=== PATIENT | female | born 1955 | race Caucasian/White ===

== ENCOUNTER 2019-02-02 07:16 | Day surgery (SDC) | payer MEDICARE, BC ==
[~2019-02-02] VITALS: Ht 160 cm; Wt 81.6 kg
[2019-02-02] VITALS (10 sets, daily range): BP systolic 105–132; BP diastolic 64–77
--- NOTE | 2019-02-02 07:00 | Pre-Procedure Note/Attestation ---
Pre-Procedure Note/Attestation Complete Prior to Procedure Planned Procedure: right Procedure Narrative: rt shoulder scope, sad, mini chen rtc repair Indications for Procedure Pre-Operative Diagnosis: rt shoulder rtc tear Attestation I attest that I discussed the nature of the procedure; its benefits; risks and complications; and alternatives (and the risks and benefits of such alternatives ), prior to the procedure, with the patient (or the patient's legal outside industrial sales representative). I attest that, if there was a reasonable possibility of needing a blood transfusion, the patient (or the patient's legal outside industrial sales representative) was given the [facility] standardized written summary, pursuant to the Zeeshan [place] Blood Safety Act ([place] Health and Safety Code # 1645, as amended). I attest that I re-evaluated the patient just prior to the surgery and that there has been no change in the patient's H&P, except as documented below:none Maurisio Zhang MD Feb 02, 2019 07:00
[~2019-02-02 07:16] MED LIST: ceFAZolin 1gm IVPB IVPB ONE; celeBREX 200mg Cap **SURGERY PATIENTS ONLY ORAL ONE; oxyCONTIN 20mg tab ORAL ONE
[2019-02-02] MEDS ORDERED: LR 1000ml 1,000 ML IVLG SCH (07:47)
[2019-02-02] MEDS ORDERED: HYDROCHLOROTHIA25 MG ORAL (07:48)
[2019-02-02] MEDS ORDERED: LIPITOR10 MG ORAL (07:48)
[2019-02-02] MEDS ORDERED: toprol XL PO (07:48)
--- NOTE | 2019-02-02 07:54 | Anethesia Preoperative Eval ---
Anesthesia Pre-op PMH/ROS General Date of Evaluation: Feb 02, 2019 Time of Evaluation: 08:11 Anesthesiologist: Crow ASA Score: ASA 2 Mallampati Score Class I : Soft palate, uvula, fauces, pillars visible Class II: Soft palate, uvula, fauces visible Class III: Soft palate, base of uvula visible Class IV: Only hard plate visible Mallampati Classification: Class II Surgeon: Leatha Diagnosis: R Shoulder Pain Surgical Procedure: R Shoulder Arthroscopy Anesthesia History: none Family History: no anesthesia problems Allergies: Uncoded Allergies: CAT GUT (Allergy, Severe, 02/02/19) ITCHING/SWELLINF Medications: see eMAR Patient NPO?: Yes Past Medical History Other: obesity - BMI 33 Anesthesia Pre-op Phys. Exam Physician Exam Vital Signs Date Time Temp Pulse Resp B/P (MAP) Pulse Ox O2 Delivery O2 Flow Rate FiO2 02/02/19 07:53 Room Air 02/02/19 07:55 98.3 69 16 127/67 99 Constitutional: NAD Neurologic: CN 2-12 intact Cardiovascular: RRR Respiratory: CTA Gastrointestinal: S/NT/ND Airway Exam Mallampati Score: Class II MO: full ROM: full Teeth: intact Anesthesia Pre-op A/P Risk Assessment & Plan Assessment: ASA 2 Plan: GA, SED, Supraclavicular Block Status Change Before Surgery: No Pre-Antibiotics Dru Grams Ancef IV Given Within 1 Hr of Incision: Yes Time Given: 08:51 Shant Gao MD Feb 02, 2019 07:54
[2019-02-02] MEDS ORDERED: Dexamethasone 4mg/ml vial ONE (07:57)
[2019-02-02] MEDS ORDERED: Sodium Chloride 10ml vial INJ ONE (07:57)
[2019-02-02] MEDS ORDERED: Lidocaine 1% MPF 10mg/ml 5ml ONE (07:57)
[2019-02-02] MEDS ORDERED: Ketorolac 30mg Inj IV PRN ×2 (08:00)
[2019-02-02] MEDS ORDERED: LORazepam Inj 2mg/ml 1ml IV PRN (08:00)
[2019-02-02] MEDS ORDERED: DiphenhydrAMINE 50mg/ml Inj IVP PRN (08:00)
[2019-02-02] MEDS ORDERED: Midazolam 2mg/2ml Inj IVP PRN (08:00)
[2019-02-02] MEDS ORDERED: oxyCODONE HCL/Acetaminophen 5/325mg ORAL PRN (08:00)
[2019-02-02] MEDS ORDERED: HYDROcodone/Acetamin 7.5/325 tab ORAL PRN (08:00)
[2019-02-02] MEDS ORDERED: Labetalol 5mg/ml 20ml vial IV PRN (08:00)
[2019-02-02] MEDS ORDERED: Meperidine 50mg/ml Inj(FOR RIGORS ONLY) IVP PRN (08:00)
[2019-02-02] MEDS ORDERED: LR 1000ml ONE (08:00)
[2019-02-02] MEDS ORDERED: Metoclopramide 10mg/2ml Inj IVP PRN (08:00)
[2019-02-02] MEDS ORDERED: Hydromorphone 0.5mg/0.5ml inj IVP PRN (08:00)
[2019-02-02] MEDS ORDERED: Atropine Sulfate 0.4mg/ml inj IVP PRN (08:00)
[2019-02-02] MEDS ORDERED: NS Irrig 4000ml IRRIG ONE (08:00)
[2019-02-02] MEDS ORDERED: fentaNYL 100 mcg/2 mL IV PRN (08:00)
[2019-02-02] MEDS ORDERED: HYDROcodone/Acetamin 5/325 tab ORAL PRN ×2 (08:00→09:45)
[2019-02-02] MEDS ORDERED: Propofol 200mg/20ml IV ONE (08:00)
[2019-02-02] MEDS ORDERED: EPINEPHrine 1mg/1ml Amp ONE ×2 (08:04→10:18)
[2019-02-02] MEDS ORDERED: Ropivacaine 5mg/ml Vial 30ml INJ ONE (08:04)
[2019-02-02] MEDS ORDERED: celeBREX 200mg Cap **SURGERY PATIENTS ONLY ORAL ONE (08:06)
[2019-02-02] MEDS ORDERED: oxyCONTIN 20mg tab ORAL ONE (08:06)
--- NOTE | 2019-02-02 09:14 | Immediate Post-Op Evaluation ---
Immediate Post-Op Evalulation Immediate Post-Op Evalulation Procedure: R Shoulder Arthroscopy, Rotator Cuff Repair Date of Evaluation: Feb 02, 2019 Time of Evaluation: 12:02 IV Fluids: 800 LR Blood Products: 0 Estimated Blood Loss: 12 Urinary Output: 0 Blood Pressure Systolic: 131 Blood Pressure Diastolic: 73 Pulse Rate: 71 Respiratory Rate: 16 O2 Sat by Pulse Oximetry: 99 Temperature (Fahrenheit): 97 Pain Score (1-10): 1 Nausea: No Vomiting: No Complications 0 Patient Status: awake, reacts, patent, none Hydration Status: adequate Dru Grams Ancef IV Given Within 1 Hr of Incision: Yes Time Given: 08:51 Shant Gao MD Feb 02, 2019 09:14
--- NOTE | 2019-02-02 09:15 | 48 Hour Post Anesthesia Eval ---
Post Anesthesia Evaluation Procedure: R Shoulder Arthroscopy Date of Evaluation: Feb 02, 2019 Time of Evaluation: 14:21 Blood Pressure Systolic: 138 0: 74 Pulse Rate: 64 Respiratory Rate: 18 Temperature (Fahrenheit): 98.2 O2 Sat by Pulse Oximetry: 96 Airway: patent Nausea: No Vomiting: No Pain Intensity: 1 Hydration Status: adequate Cardiopulmonary Status: Stable Mental Status/LOC: patient returned to baseline Follow-up Care/Observations: 0 Post-Anesthesia Complications: 0 Follow-up care needed: ready to discharge Shant Gao MD Feb 02, 2019 09:15
[2019-02-02] MEDS ORDERED: HYDROmorphone 1mg/ml Carpuject SUBQ PRN (09:45)
[2019-02-02] MEDS ORDERED: Tylenol #3 tab (300mg/30mg) ORAL PRN (09:45)
[2019-02-02] MEDS ORDERED: D5 1/2NS 1,000 ML IV SCH (09:45)
--- NOTE | 2019-02-02 11:36 | Brief Operative Note ---
Immediate Post Operative Note Operative Note Chief Complaint: rt shoulder pain Pre-op Diagnosis: rt shoulder rtc tear Procedure: rt shoulder scope, sad mini chen, rtc repair biceps tenodesis Post-op Diagnosis: same as pre-op Findings: consistent w/pre-op dx studies Surgeon: md singh Assembly Machine Operator: dar florez Anesthesiologist: md cherelle Anesthesia: general Specimen: none Complications: none Condition: stable Fluids: ns Estimated Blood Loss: minimal Drains: none Implant(s) used?: Yes - biomet Liz Florez Feb 02, 2019 11:36
--- NOTE | 2019-02-02 20:45 | Operative Note - Dictated ---
DATE OF OPERATION: 02/02/2019 PREOPERATIVE DIAGNOSES: 1. Right shoulder rotator cuff tear. 2. Right shoulder impingement. POSTOPERATIVE DIAGNOSES: 1. Right shoulder full-thickness large 2 cm rotator cuff tear with some retraction. 2. Right shoulder severe degenerated biceps tendon. 3. Right shoulder subacromial impingement. 4. Right shoulder bone spur underneath the clavicle. PROCEDURE: 1. Right shoulder arthroscopy and extensive intraarticular shaving. 2. Right shoulder subacromial bursoscopy, bursectomy, and subacromial decompression. 3. Right shoulder arthroscopic biceps tenodesis through a 7 mm socket in the bicipital groove in the supra pectoral region with fixation with the Linvatec expandable screw. 4. Right shoulder mini Chen procedure (resection of inferior 30% descending into the clavicle). 5. Right shoulder arthroscopic rotator cuff repair using one 2.9 mm JuggerKnot anchor double loaded as well as a second 5.5 mm rescue PEEK screw and anchor due to the second JuggerKnot pulling out of the bone. SURGEON: Maurisio Zhang M.D. BOND WRITER: Liz Higuera PA-C. Pbx Inspector was present during the actual operative portion of the case and was important and essential part of the operation. During the operation, the food and beverage assistant held and operated the arthroscopic camera for visualization, assisted by manipulating the arm to help with visualization, and helped with essential parts of the repair process as necessary such as operating surgical instruments under surgeon supervision, suture management, and wound closures. ANESTHESIOLOGIST: Shant Gao M.D. ANESTHESIA: General LMA anesthesia, interscalene block. EBL: Minimal. COMPLICATIONS: None. SURGICAL INDICATION: The patient is a 63-year-old female who sustained the above injury to her shoulder. The patient was treated non-operative initially, but this did not alleviate the patients symptoms. Therefore, after discussing all non-surgical and surgical options, and discussing all foreseeable risk and benefits of surgery, the patient opted for surgical treatment as described above. PATIENT POSITIONING: Patient was brought to the operating room table and was placed on the operating room table. All pressure points were well padded. General anesthesia was induced and patient was then placed in the lateral decubitus position. All pressure points were well padded again and an axillary roll was placed. Patient shoulder was then prepped and draped in the usual sterile fashion. Time out was performed and the appropriate preoperative antibiotic was given by the anesthesiologist. EXAMINATION OF SHOULDER UNDER ANESTHESIA: The shoulder was examined under anesthesia with all muscles well relaxed. The shoulder was forward flexed, abducted and was placed through full range of external and internal rotation. The anterior, posterior, and inferior stability of the shoulder was checked. The exam revealed no evidence of adhesive capsulitis and no evidence of instability. PORTAL PLACEMENT: The posterior portal was established 2 cm inferior and 1 cm medial to the edge of the posterior acromion. 1 cm skin incision was made using an eleven blade and using the blunt obturator, the cannula was gently placed through the capsule. The midglenoid portal was established just lateral to the coracoid process under direct visualization. Direction of the cannula was first established using a spinal needle, and subsequently, the cannula was placed through the capsule with a blunt obturator. DIAGNOSTIC ARTHROSCOPY: The biceps tendon was probed and pulled through the joint for visualization. There was extensive biceps fraying and tearing in the bicipital groove and the biceps was pulled in. The biceps anchor was palpated with a probe and was visualized. It appeared well attached and there was no evidence of SLAP tear. The posterior labrum and axillary recess was visualized. This was normal and there was no evidence of loose cartilage or fragments in this area. The glenoid articular surface was visualized and it appeared normal. The articular surface of the rotator cuff was visualized and probed next. There was evidence of large rotator cuff tear with some retraction back to the mid acromial area. The Humeral head articular surface was then visualized. There was no evidence of articular cartilage damage. Next the anterior labrum, middle gleno-humeral ligament, subscapularis tendon, and the anterior inferior gleno-humeral ligament were evaluated. These structures were completely normal. At this point, the scope was moved to the midglenoid portal and the posterior structures including the posterior labrum, posterior capsule and posterior cuff were visualized. These structures were completely normal. The subscapularis recess was devoid of any loose bodies and the anterior capsule was well attached to the humeral neck. The middle and anterior inferior glenohumeral ligament was visualized. These structures were completely normal. OPERATIVE DEBRIDEMENTS AND REPAIR: Care was given to all partial thickness tears and frayed structures in the shoulder joint. The frayed rotator cuff and labrum was debrided using a shaver initially through the anterior portal and subsequently through the posterior portal to complete the debridement. This allowed for smooth debridement of all affected structures and all loose fragments were removed. At this point, care was given to the biceps tenotomy and tenodesis. A suture was placed in the biceps tendon approximately 1.5 cm above the insertion point of the glenoid. This was a traction suture. Subsequently, the biceps tenotomy was performed. Once the subacromial decompression was completed, the bicipital groove was identified and a 7 mm socket was drilled in in the bicipital groove in the supra pectoral region. At this point, the biceps tendon was then dunked into the 7 mm socket and was fixed using a 7 mm Linvatec expandable PEEK fixation device. This provided excellent stability of the biceps tendon. At this point, care was given for subacromial decompression. DIAGNOSTIC BURSASCOPY AND SUBACROMIAL DECOMPRESSION: The subacromion bursa was entered from the posterior portal. The anterior portal was established under the CA ligament using a switching stick. Subacromial arthroscopy was initiated. There was extensive bursitis and thickened and inflamed bursa tissue present. The CA ligament appeared to be scuffed and frayed. The shaver was placed through the anterior cannula and debridement of the hypertrophic bursa tissue was accomplished. Once visualization was adequate, a lateral portal was established using a blunt trochar in the mid portion of the acromion bone in the anterior-posterior direction and approximately 2 cm lateral to the lateral edge of the acromion. Using combination of shaver and electrocautery the CA ligament was released from the undersurface of the acromion and a complete bursectomy was accomplished. At this point, a subacromial decompression was performed using a aleshia initially taking off 5-8 mm of the anterolateral edge of the acromion from the lateral portal and viewing from the posterior portal. Then the lateral border of the undersurface of the acromion was decompressed to the same dept as the anterolateral edge. A posterior trough was then created in the acromion in line with the posterior edge of the clavicle. At this point, the scope was placed in the lateral portal and the subacromial decompression was performed from the posterior portal decompressing the undersurface of the acromion to dept of 5-8 mm. The decompression was performed anterior to the previously marked trough all the way medially to the level of the AC joint. At all times, care was given not to take off too much bone in order to avoid risk of fracture of the acromion. An excellent subacromial decompression was performed in this fashion. At this point, the bursal side of the rotator cuff was examined. All the bursa over the rotator cuff was removed and the rotator cuff was examined with a probe. The arm was placed into external rotation, neutral, and then internal rotation and there was evidence of a 2 cm partial retractor with a cuff tear. The scope was then placed in the posterior portal and the subacromial decompression was rechecked to assure there is no area of bone spur that would be still impinging onto the rotator cuff. EVALUATION OF DISTAL CLAVICLE AND DISTAL CLAVICLE RESECTION: Care was given to the distal end of the clavicle. Using electrocautery and andreia, the distal end of the bursa and soft tissue around the distal end of the clavicle was debrided and cleaned. Care was given not to inflict excessive trauma to the ligaments of the AC joint. The distal end of the clavicle appeared to have an inferior osteophyte extending down well bellow the level of the acromion at the level of the AC joint. This appeared to be impinging onto the supraspinatous muscle belly and the musculotendenous junction of the rotator cuff. A mini-chen procedure was performed by using a aleshia to resect the inferior 30% of the distal end of the clavicle. This decompression allowed space for the inferior structures to slide without impingment. This co-plained the inferior edge of the distal clavicle with the inferior edge of the acromion. The scope was placed in the lateral portal and the rotator cuff was visualized. The rotator cuff revealed a crescent shape pattern. The rotator cuff foot print adjacent to the articular cartilage of the humeral head was identified. This area was debrided initially using andreia and subsequently using aleshia to provide adequate bleeding bony surface to accept the rotator cuff tendon. Attention was given to repair the rotator cuff with as little tension as possible. At this point, an arthroscopic punch was used to create holes for suture anchor placement at the medial edge of the foot print through separate stab wound incisions and an arthroscopic tap was used to prepare the holes. One 2.9 mm JuggerKnot and one 5.5 mm rescue anchor double loaded with two #2 non-absorbable strong sutures were placed in previously prepared holes. It should be noted that the rescue anchor was used because the second JuggerKnot anchor was inserted and pulled out with gentle traction. The bone was very soft. Therefore, a 5.5 mm anchor was used. Using standard arthroscopic suture passing instruments, the sutures were passed through the edge of rotator cuff with minimal trauma to the cuff tissue. Care was given to obtain large enough bites of the rotator cuff for the sutures to hold well. Once the sutures were passed through the cuff, the repair was secured onto the rotator cuff foot print using SMC sliding knots followed by 3 alternating-post half hitches. This allowed tension free repair of the rotator cuff with excellent stability and water tight closure. The cuff repair security was assured by palpating the repair with a probe. CONDITION AT DISCHARGE FROM OPERATING ROOM: The skin was re-approximated and sterile dressing and sling were applied. All lap counts and instrument counts were correct. Patient tolerated the procedure well without complications and was taken to the recovery room in stable conditions. Maurisio Zhang M.D. DR: ARTIS JOB#: [id number] CC: [email or web address]
== END 2019-02-02 14:00 | disposition home or self-care (01) ==
LOC: SUR 07:16
DX: M75.121 Complete rotator cuff tear or rupture of right shoulder, not specified as traumatic (principal); M25.811 Other specified joint disorders, right shoulder; M77.9 Enthesopathy, unspecified
CPT/HCPCS: 29823; 29824; 29826; 29827; 29828; C1713; J0171; J0690; J1100; J2250; J2405; J2704; J2795; 94003; 94150

== ENCOUNTER 2020-10-03 05:07 | Inpatient (IN) | payer MEDICARE, BC ==
[2020-10-03] VITALS (15 sets, daily range): BP systolic 108–150; BP diastolic 63–91
[~2020-10-03] VITALS: Ht 160 cm; Wt 85.7 kg
[~2020-10-03 05:07] MED LIST changes: +ALLOPURINOL100 M1 ORAL; +ENBREL50 MG/1 M1 SUBQ; +FOLIC ACID1 MG ORAL; +HYDROCHLOROTHIA25 MG ORAL; +LIPITOR10 MG ORAL; +LISINOPRIL2.5 MG ORAL; +METHOTREXATE2.5 MG PO; +MOBIC7.5 MG ORAL; +PLAQUENIL PO; +PREDNISONE5 M4 PO; +SELENIUM200 MC2 PO; +SULFASALAZINE500 MG ORAL; +VITAMIN B125000 MCG PO; +VITAMIN D PO; -ceFAZolin 1gm IVPB IVPB ONE; -celeBREX 200mg Cap **SURGERY PATIENTS ONLY ORAL ONE; -oxyCONTIN 20mg tab ORAL ONE; +toprol XL PO
[2020-10-03] MEDS ORDERED: ceFAZolin 1gm IVPB IVPB ONE ×2 (06:00)
[2020-10-03] MEDS ORDERED: celeBREX 200mg Cap **SURGERY PATIENTS ONLY ORAL ONE (06:00)
[2020-10-03] MEDS ORDERED: oxyCONTIN 10mg tab ORAL ONE (06:00)
[2020-10-03] MEDS ORDERED: oxyCONTIN 20mg tab ORAL ONE (06:00)
[2020-10-03] MEDS ORDERED: LR 1000ml 1,000 ML IVLG SCH (06:45)
[2020-10-03] MEDS ORDERED: Meperidine 25mg/1ml Inj (FOR RIGORS ONLY) IV PRN (06:45)
[2020-10-03] MEDS ORDERED: LORazepam Inj 2mg/ml 1ml IV PRN (06:45)
[2020-10-03] MEDS ORDERED: Ketorolac 30mg Inj IV PRN ×2 (06:45)
[2020-10-03] MEDS ORDERED: fentaNYL 100 mcg/2 mL IV PRN (06:45)
[2020-10-03] MEDS ORDERED: Hydromorphone 0.5mg/0.5ml inj IVP PRN (06:45)
[2020-10-03] MEDS ORDERED: HYDROcodone/Acetamin 7.5/325 tab ORAL PRN (06:45)
[2020-10-03] MEDS ORDERED: oxyCODONE HCL/Acetaminophen 5/325mg ORAL PRN (06:45)
[2020-10-03] MEDS ORDERED: Midazolam 2mg/2ml Inj IVP PRN (06:45)
[2020-10-03] MEDS ORDERED: Tranexamic Acid 1,000 MG in NS 110 ML IVPB ONE (06:45)
[2020-10-03] MEDS ORDERED: Atropine Sulfate 0.4mg/ml inj IVP PRN (06:45)
[2020-10-03] MEDS ORDERED: Metoclopramide 10mg/2ml Inj IVP PRN (06:45)
[2020-10-03] MEDS ORDERED: Labetalol 5mg/ml 20ml vial IV PRN (06:45)
[2020-10-03] MEDS ORDERED: DiphenhydrAMINE 50mg/ml Inj IVP PRN (06:45)
[2020-10-03] MEDS ORDERED: HYDROcodone/Acetamin 5/325 tab ORAL PRN ×2 (06:45→07:15)
--- NOTE | 2020-10-03 06:52 | Anethesia Preoperative Eval ---
Anesthesia Pre-op PMH/ROS General Date of Evaluation: Oct 03, 2020 Time of Evaluation: 06:49 Anesthesiologist: Sima ASA Score: ASA 3 Mallampati Score Class I : Soft palate, uvula, fauces, pillars visible Class II: Soft palate, uvula, fauces visible Class III: Soft palate, base of uvula visible Class IV: Only hard plate visible Mallampati Classification: Class II Surgeon: Leatha Diagnosis: R Shoulder Pain Surgical Procedure: R Shoulder Total Arthroplasty Anesthesia History: none Family History: no anesthesia problems Allergies: Uncoded Allergies: CAT GUT (Allergy, Severe, 02/02/19) ITCHING/SWELLINF Medications: see eMAR Patient NPO?: Yes Past Medical History Cardiovascular: Reports: HTN, other - HL Pulmonary: Reports: asthma, COPD, other - Emphysema Musculoskeletal/Integumentary: Reports: other - GOUT Other: obesity - BMI 35 PSxH Narrative: R Shoulder SX, Lumbar SX, B Carpal Tunnel SX, C/S X2, Foot Sx Anesthesia Pre-op Phys. Exam Physician Exam Last Vital Signs Date Time Temp Pulse Resp B/P (MAP) Pulse Ox O2 Delivery O2 Flow Rate FiO2 10/03/20 06:08 Room Air 10/03/20 05:54 97.6 71 18 123/83 (96) 99 Constitutional: NAD Neurologic: CN 2-12 intact Cardiovascular: RRR Respiratory: CTA Gastrointestinal: S/NT/ND Airway Exam Mallampati Score: Class II MO: full ROM: limited Teeth: missing, intact Anesthesia Pre-op A/P Risk Assessment & Plan Assessment: ASA 3 Plan: GA, Supraclavicular Block, SED Status Change Before Surgery: No Pre-Antibiotics Dru Grams Ancef IV Given Within 1 Hr of Incision: Yes Time Given: 07:26 Shant Gao MD Oct 03, 2020 06:52
--- NOTE | 2020-10-03 06:53 | Immediate Post-Op Evaluation ---
Immediate Post-Op Evalulation Immediate Post-Op Evalulation Procedure: R Shoulder Total Arthroplasty Date of Evaluation: Oct 03, 2020 Time of Evaluation: 10:29 IV Fluids: 1100 LR Blood Products: 0 Estimated Blood Loss: 75 Urinary Output: 0 Blood Pressure Systolic: 150 Blood Pressure Diastolic: 68 Pulse Rate: 80 Respiratory Rate: 16 O2 Sat by Pulse Oximetry: 100 Temperature (Fahrenheit): 97.5 Pain Score (1-10): 2 Nausea: No Vomiting: No Complications 0 Patient Status: awake, reacts, patent, none Hydration Status: adequate Dru Grams Ancef IV Given Within 1 Hr of Incision: Yes Time Given: 07:26 Shant Gao MD Oct 03, 2020 06:53
[2020-10-03] MEDS ORDERED: Lidocaine 1% MPF 10mg/ml 5ml ONE (06:54)
[2020-10-03] MEDS ORDERED: Sodium Chloride 10ml vial INJ ONE (06:54)
--- NOTE | 2020-10-03 06:54 | 48 Hour Post Anesthesia Eval ---
Post Anesthesia Evaluation Procedure: R Shoulder Total Arthroplasty Date of Evaluation: Oct 03, 2020 Time of Evaluation: 12:46 Blood Pressure Systolic: 132 0: 78 Pulse Rate: 71 Respiratory Rate: 18 Temperature (Fahrenheit): 98 O2 Sat by Pulse Oximetry: 99 Airway: patent Nausea: No Vomiting: No Pain Intensity: 2 Hydration Status: adequate Cardiopulmonary Status: Stable Mental Status/LOC: patient returned to baseline Follow-up Care/Observations: 0 Post-Anesthesia Complications: 0 Follow-up care needed: N/A Shant Gao MD Oct 03, 2020 06:54
[2020-10-03] MEDS ORDERED: EPINEPHrine 1mg/1ml Amp ONE ×2 (06:56→07:00)
[2020-10-03] MEDS ORDERED: Ropivacaine 5mg/ml Vial 20ml INJ ONE (06:56)
[2020-10-03] MEDS ORDERED: LR 1000ml ONE (07:00)
[2020-10-03] MEDS ORDERED: NS Irrig 1000ml ONE (07:00)
[2020-10-03] MEDS ORDERED: Sterile Water Irrig 1000ml IRRIG ONE (07:00)
[2020-10-03] MEDS ORDERED: Bupivacaine 0.5% Inj 30 ml vial INJ ONE (07:00)
[2020-10-03] MEDS ORDERED: Bacitracin 50000 Units Vial ONE (07:01)
--- NOTE | 2020-10-03 07:09 | Pre-Procedure Note/Attestation ---
Pre-Procedure Note/Attestation Complete Prior to Procedure Planned Procedure: right Procedure Narrative: right reverse total shoulder arthroplasty Indications for Procedure Pre-Operative Diagnosis: right shoulder rotator cuff arthropathy Attestation I attest that I discussed the nature of the procedure; its benefits; risks and complications; and alternatives (and the risks and benefits of such alternatives), prior to the procedure, with the patient (or the patient's legal personnel representative). I attest that, if there was a reasonable possibility of needing a blood transfusion, the patient (or the patient's legal personnel representative) was given the [facility] standardized written summary, pursuant to the Zeeshan [place] Blood Safety Act ([place] Health and Safety Code # 1645, as amended). I attest that I re-evaluated the patient just prior to the surgery and that there has been no change in the patient's H&P, except as documented below: none Maurisio Zhang MD Oct 03, 2020 07:08
[2020-10-03] MEDS ORDERED: Hydromorphone 0.5mg/0.5ml inj SUBQ PRN (07:15)
[2020-10-03] MEDS ORDERED: HYDROmorphone 1mg/ml Carpuject SUBQ PRN (07:15)
[2020-10-03] MEDS ORDERED: fentaNYL 100 mcg/2 mL IV ONE (07:52)
--- NOTE | 2020-10-03 10:06 | Brief Operative Note ---
Immediate Post Operative Note Operative Note Chief Complaint: right shoulder pain Pre-op Diagnosis: right shoulder rotator cuff arthropathy Procedure: right reverse total shoulder arthroplasty Post-op Diagnosis: same as pre-op Findings: consistent w/pre-op dx studies Surgeon: md morro Rn Cardiac: dar florez Anesthesiologist: md cherelle Anesthesia: general Specimen: yes Complications: none Condition: stable Fluids: ns Estimated Blood Loss: minimal Drains: none Implant(s) used?: Yes Maurisio Zhang MD Oct 03, 2020 10:06
--- NOTE | 2020-10-03 11:35 | NUR ---
NURSE NOTES: PATIENT RECEIVED FROM PACU ON BED AOX4. RIGHT SHOULDER SURGICAL SITE C/D/I WITH IMMOBILIZER ON. CAPILLARY REFILL LESS THAN 3 SECS TO RIGHT INDEX FINGER. ABLE TO MOVE ALL FINGERS UPON DEMAND RIGHT BRACHIAL PULSE PALPABLE. SKIN W/D.LAC HEPLOCK PATENT AND SECURED. HEAD TO TOE ASSESSMENT PERFORMED. BEDSIDE REPORT RECEIVED. PATINE ORIENTED TO ROOM/ BED IN LOW AND LOCKED POSITION WITH PERSONAL ITEMS AND CALL LIGHT WITHIN REACH.
--- NOTE | 2020-10-03 12:15 | NUR ---
PT EVALUATION NOTE Patient seen for initial evaluation and treatment initiated. Patient presents with impaired functional mobility s/p R shoulder surgery. Patient able to transfer with SBA and able to ambulate 40 ft with SBA, no AD. Patient will benefit from skilled inpatient PT intervention to improve postural stability and safety in order to return to prior level of functional mobility. Anticipate discharge home once medically cleared by MD. No DME needs identified at this time. Addendum: 10/03/20 at 1259 by DAMION HERZOG PT Amended: Links added.
[2020-10-03] MEDS: Docusate 100mg cap ORAL SCH ×2 (13:56→18:09)
[2020-10-03] MEDS: D5 1/2NS 1,000 ML IV SCH ×2 (13:57→23:38)
--- NOTE | 2020-10-03 14:44 | Diagnostic Imaging Report ---
Indication: Pain, status post shoulder surgery Technique: 2 views of the right shoulder Comparison: none Findings: There is a right shoulder reverse arthroplasty prosthesis in place. There is gas within the soft tissues, presumably retained air from the surgical exposure. The prosthesis appears well aligned. No retained foreign body Impression: Postoperative right shoulder. No unusual features
[2020-10-03] MEDS: ceFAZolin sod 1 GM in D5W 55 ML IV SCH ×2 (15:25→23:38)
--- NOTE | 2020-10-03 16:35 | NUR ---
NURSE NOTES: PATIENT REMAINS STABLE AND PAIN-FREE. VSS. AFEBRILE.SURGICAL SITE C/D/I. AMBULATED PATIENT TO BATHROOM. GAIT STEADY. DENIES DIZZINESS. ABLE TO VOID W/O DIFFICULTY. TOLERATING REGULAR MEALS. USING I/S INSTRUCTED.
[2020-10-03] MEDS ORDERED: Dicyclomine HCl 10mg/5ml oral soln ORAL PRN ×2 (17:00)
--- NOTE | 2020-10-03 17:29 | Operative Note - Dictated ---
DATE OF OPERATION: 10/03/2020 PREOPERATIVE DIAGNOSIS: Right shoulder rotator cuff arthropathy with superior subluxation of the humeral head and loss of rotator cuff. POSTOPERATIVE DIAGNOSIS: Right shoulder rotator cuff arthropathy with superior subluxation of the humeral head and loss of rotator cuff. PROCEDURE: Right reverse total shoulder arthroplasty using Powers system with a small metal-back glenoid baseplate with a central peg, size 36 mm glenosphere with eccentric inferiorly, 2 locking baseplate screws of 20 mm inferiorly and 25 mm superiorly, size 14 mm diameter stem with a +3 mm ultra cross-linked polyethylene reverse liner insert. SURGEON: Maurisio Zhang MD GOLD LEAF PRINTER: Liz Higuera PA-C Environmental Program Manager was present during the actual operative portion of the case and was important and essential part of the operation. During the operation, the pastrycook's assistant held and operated the arthroscopic camera for visualization, assisted by manipulating the arm to help with visualization, and helped with essential parts of the repair process as necessary such as operating surgical instruments under surgeon supervision, suture management, and wound closures. ANESTHESIOLOGIST: Shant Gao MD ANESTHESIA: General LMA anesthesia combined with interscalene block. ESTIMATED BLOOD LOSS: Less than 150 mL. COMPLICATIONS: None. BRIEF HISTORY: The patient is a very pleasant 64-year-old female who has had significant right shoulder pain. She had some rotator cuff tear, which was initially repaired; however, she re-tore her rotator cuff. After full discussion of risks and benefits of surgery and complications associated with it including infection, bleeding, neurovascular complication, possibility of injury to axillary nerve or musculocutaneous nerve as well as the brachial plexus as well as other complication including DVTs, infection, bleeding, need for revision arthroplasty, possible dislocation, possible subscap failure, loss of motion, loss of strength, and other complications that may arise down the line, which are not foreseen right now, she opted for surgical treatment as described above. OPERATIVE PROCEDURE: The patient was brought to the operating room table and was placed supine. All pressure points were well padded. Interscalene block was performed. General endotracheal anesthesia was induced. The patient was placed in beach-chair position and fully padded. The neck was placed in neutral position. The right shoulder was then prepped and draped in the usual sterile fashion. Time-out was performed. Preoperative antibiotics were given and the standard deltopectoral incision was performed from the coracoid down laterally away from the axilla. The incision was taken through subcutaneous tissue. The cephalic vein was identified, which was retracted laterally. The pectoralis was dissected off medially. At this point, the retractors were placed in underneath the deltoid and the pectoralis and subdeltoid release of adhesions were performed using the Bonilla retractor. Once this was completed, the inferior portion of the attachment of the pec-major was identified and was released by about a centimeter and a half. At this point, the biceps tendon was identified, which was hyperemic and inflamed. The biceps tendon was then tagged and cut for later tenodesis. At this point, the inferior subscap was identified and circumflex vessels were identified and these were ligated using suture ligation and Bovie. Once this was completed, the inferior, lateral, and superior border of the subscap was identified. The subscap was then released along with the capsule about a centimeter medial to the insertion site of the lesser tuberosity. Once this was completed, the subscap was released. It was placed inside the subscapularis fossa and was retracted using a retractor. The anterior labrum and superior and posterior labrum were visualized. The capsule was released off of the humeral neck. Bonilla and Fukuda retractors were placed in and the glenoid was exposed. The glenoid was then circumferentially released from the capsule and the labrum. The labrum was resected. Biceps tenotomy on the attachment site was performed and the biceps stump was removed. Once the glenoid was completely identified, inferiorly, medially, laterally, anteriorly, and posteriorly, the central portion of the glenoid was identified using the quadrant method. A pin was placed perpendicular to the glenoid face and minimal reaming was performed to get to the subchondral bone. Once this was performed, the central peg was drilled and a small baseplate was applied and was malleted in without any complication. The baseplate was seated very well. At this point, a 20 mm inferior screw and a 25 mm superior screw were placed in without any complications. The glenosphere inferiorly was then locked on and was malleted in for Pope taper and was secured secondarily with a screw with excellent fixation. Once this was completed, care was given to the humerus. It should be noted that prior to performing the glenoid portion of this procedure, a humeral neck cut was performed. This was performed initially by finding a canal finder superiorly and then putting in an awl secondarily. Once this was completed, a cutting guide was applied and 20 degrees of retroversion was re-created to re-create anatomical cut of the humerus. This was checked with a guide and the guide was then pinned in and the intramedullary device was removed and the surgical neck cut was performed without any complication. Once this was completed, this was capped and glenoid was prepared as described above. At this point, once the glenoid was completed, the care was given to the humerus. Sequential awl reaming was performed and size 14 reamer appeared to have a great purchase. Once this was established, broaching was performed and size 14 mm broach appeared to be the right size. A 20 degrees of retroversion was created. Once this was completed, a proximal reaming intramedullary guide was placed in and the proximal portion was reamed without any complication. Once this was completed, the wounds were thoroughly irrigated including glenosphere as well as the intramedullary canal with Simpulse irrigation. The 14 mm actual stem was placed in without any complication re-creating the retroversion as described previously. Once this was settled in well, sequential trialing was performed with +0 reverse liner and then +3 reverse liner. A +3 reverse liner provided excellent tension and excellent stability. There was good stability at abduction, external rotation, internal rotation, and adduction. There was no evidence of subluxation or dislocation. There was excellent deltoid tension. There was no pistoning. The prosthesis was then gently re-dislocated with some difficulty, which pointed out to the good tension of the deltoid and the prosthesis. At this point, the trial 3 mm was removed and the Pope taper and the entire shoulder was again Simpulse irrigated multiple times. The Pope taper was dried and the actual +3 mm reverse poly insert was then malleted in without any complication. The entire construct was reduced. Range of motion and stability was checked and appeared to be excellent as described previously. At this point, the subscap was closed back on its tendon using three #2 FiberWire sutures. Biceps tenodesis was performed to the soft tissue in the area. The wounds were thoroughly irrigated again. The ends of the deltopectoral interval were closed using #1 Vicryl suture. Subcutaneous tissue was closed using 2-0 Vicryl suture. Skin was closed using 3-0 Monocryl suture. Sterile dressing was applied. The patient was taken to recovery room in stable condition. All lap counts and instrument counts were correct. Mauirsio Zhang M.D. DR: EDUARDO JOB#: [id number] CC: [email or web address]
[2020-10-03] MEDS: SulfASALAZine 500MG tab ORAL SCH (18:09)
--- NOTE | 2020-10-03 19:29 | NUR ---
NURSE HAND-OFF: Important Events on Shift:AMBULATED TWICE. Patient Status: STABLE Diet: REGULAR Pending Orders: N/A Pending Results/Labs:N/A Pending MD notification:N/A Latest Vital Signs: Temperature 97.9 , Pulse 71 , B/P 125 /74 , Respiratory Rate 20 , O2 SAT 94 , Room Air, O2 Flow Rate 6 . Vital Sign Comment: STABLE Latest Pope Fall Score: 35 Fall Risk: Medium Risk Safety Measures: Call light Within Reach, Bed Alarm , Side Rails Side Rails x3, Bed position Low and Locked. Fall Precautions: Door Sign Patient Fall Education Report given to JAYESH TYSON RN.
[2020-10-03] MEDS: Allopurinol 100mg Tab ORAL SCH (20:53)
[2020-10-03] MEDS: oxyCONTIN 10mg tab ORAL SCH (20:55)
--- NOTE | 2020-10-03 21:44 | NUR ---
NURSE NOTES: Received report from Tammy. Patient is alert and oriented x4. Breathing is even and unlabored. Patient is on SCD and ambulates to bathroom with help of RN. Patient has arm immobilizer on right side with ice pack on top of shoulder. Patient denies any pain at the moment. IV on left AC 20g running D5 1/2NS. The dressing is dry and intact. Bed low and locked. Call light within reach. Addendum: 10/04/20 at 0646 by Rajesh Huang RN Correction. Time note entered 193.
[2020-10-03] MEDS ORDERED: Tubing IV Secondary IV ONE (22:45)
[2020-10-03] MEDS ORDERED: D5 1/2NS 1000ml IV ONE (22:45)
--- NOTE | 2020-10-03 23:15 | History and Physical Report ---
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 Zhang. The patient is postoperatively doing well. She has had some postoperative pain, which is controlled. Denies any chest pain. No shortness of breath. No fevers or chills. No urinary problems. PAST MEDICAL HISTORY: Includes history of rheumatoid arthritis, history of gout, history of previous back surgeries related to her rheumatoid arthritis, history of CAD, and history of hypertension. No history of diabetes. ALLERGIES: None known. MEDICATIONS: Please see the reconciled medication list. SOCIAL HISTORY: The patient is retired nurse. She does not smoke and does not drink any alcohol. REVIEW OF SYSTEMS: Twelve-point review of systems reviewed. Negative except for above. PHYSICAL EXAMINATION: GENERAL: She is well developed, well nourished, currently in no apparent distress. VITAL SIGNS: Reveal temperature 97.9, blood pressure 121/69, pulse 72, respirations 21, saturation 95% to 100% on room air. HEENT: Head is normocephalic and atraumatic. Pupils reactive to light. NECK: Supple. No JVD. LUNGS: Clear. HEART: Regular rate and rhythm. ABDOMEN: Soft. Positive bowel sounds. EXTREMITIES: No clubbing, cyanosis, or edema. Right shoulder is wrapped currently. NEUROLOGIC: Nonfocal. ASSESSMENT AND PLAN: The patient is a pleasant 64-year-old female with history of rheumatoid arthritis with complications, who underwent right shoulder surgery today by Dr. Zhang, postoperatively doing fine. The patient should receive pain control. We will restart her blood pressure medication as well as her allopurinol for her gout. The patient should receive pain medications. We will check labs in the morning. She should be on DVT and ulcer prophylaxis. Thank you for allowing me to participate in the care of this patient. Antonio Doss M.D. DR: Arjun JOB#: [id number] CC: Maurisio Zhang M.D.; Fax#: [phone]
[2020-10-04] VITALS: BP 102/56
[2020-10-04 06:17] LABS: BASOPHILS % (AUTO) 0.5 % (0.0-2.0); EOSINOPHILS % (AUTO) 0.3 % (0.0-3.0); HEMATOCRIT 28.8 % (37.0-47.0); HEMOGLOBIN 10.1 G/DL (12.0-16.0); MEAN CORPUSCULAR VOLUME 97 FL (80-99); MONOCYTES % (AUTO) 9.2 % (1.0-10.0); PLATELET COUNT 153 K/UL (150-450); RED BLOOD COUNT 2.98 M/UL (4.20-5.40); RED CELL DISTRIBUTION WIDTH 14.9 % (11.6-14.8); WHITE BLOOD COUNT 11.2 K/UL (4.8-10.8)
[2020-10-04 06:29] LABS: CALCIUM 8.5 MG/DL (8.5-10.1); CREATININE 1.3 MG/DL (0.55-1.30); POTASSIUM 3.6 MMOL/L (3.5-5.1)
--- NOTE | 2020-10-04 06:56 | NUR ---
NURSE HAND-OFF: Important Events on Shift: Scheduled pain med Patient Status: Stable Diet: Regular Pending Orders: N/A Pending Results/Labs:N/A Pending MD notification:N/A Latest Vital Signs: Temperature 98.2 , Pulse 65 , B/P 102 /56 , Respiratory Rate 16 , O2 SAT 100 , Room Air, O2 Flow Rate 6 . Vital Sign Comment: VS stable Latest Pope Fall Score: 35 Fall Risk: Medium Risk Safety Measures: Call light Within Reach, Bed Alarm , Side Rails Side Rails x3, Bed position Low and Locked. Fall Precautions: Door Sign Patient Fall Education Report will be given to Serena HINES. Addendum: 10/04/20 at 0720 by Rajesh Huang RN Report given to Tammy HINES.
[2020-10-04] MEDS: ceFAZolin sod 1 GM in D5W 55 ML IV SCH (07:14)
--- NOTE | 2020-10-04 07:15 | NUR ---
NURSE NOTES: WALKING ROUNDS DONE WITH NIGHT RN. PATIENT AWAKE IN BE HAVING BREAKFAST. QUESTIONS ANSWERED, NEEDS MET. DISCUSSED PLAN OF CARE FOR THE DAY. RIGHT SHOULDER SURGICAL SITE C/D/I. ABLE TO MOVE RUE W/O DIFFICULTY. C/O MILD SURGICAL PAIN. VSS AFEBRILE. BED IN LOW AND LOCKED POSITION. PERSONAL ITEMS AND CALL LIGHT WITHIN ARM'S REACH.
[2020-10-04 08:00] VITALS: BP 117/61
--- NOTE | 2020-10-04 08:19 | Orthopedic Progress Note ---
Orthopedic - Progress Note Subjective Symptoms: improved Objective Laboratory Tests Test 10/04/20 05:20 White Blood Count 11.2 K/UL (4.8-10.8) H Red Blood Count 2.98 M/UL (4.20-5.40) L Hemoglobin 10.1 G/DL (12.0-16.0) L Hematocrit 28.8 % (37.0-47.0) L Mean Corpuscular Volume 97 FL (80-99) Mean Corpuscular Hemoglobin 34.1 PG (27.0-31.0) H Mean Corpuscular Hemoglobin Concent 35.2 G/DL (32.0-36.0) Red Cell Distribution Width 14.9 % (11.6-14.8) H Platelet Count 153 K/UL (150-450) Mean Platelet Volume 7.7 FL (6.5-10.1) Neutrophils (%) (Auto) 75.0 % (45.0-75.0) Lymphocytes (%) (Auto) 15.0 % (20.0-45.0) L Monocytes (%) (Auto) 9.2 % (1.0-10.0) Eosinophils (%) (Auto) 0.3 % (0.0-3.0) Basophils (%) (Auto) 0.5 % (0.0-2.0) Sodium Level 140 MMOL/L (136-145) Potassium Level 3.6 MMOL/L (3.5-5.1) Chloride Level 106 MMOL/L (98-107) Carbon Dioxide Level 27 MMOL/L (21-32) Anion Gap 7 mmol/L (5-15) Blood Urea Nitrogen 23 mg/dL (7-18) H Creatinine 1.3 MG/DL (0.55-1.30) Estimat Glomerular Filtration Rate 41.0 mL/min (>60) Glucose Level 118 MG/DL (74-106) H Calcium Level 8.5 MG/DL (8.5-10.1) Last 24 Hour Vital Signs Date Time Temp Pulse Resp B/P (MAP) Pulse Ox O2 Delivery O2 Flow Rate FiO2 10/04/20 00:00 98.2 65 16 102/56 (71) 100 10/03/20 21:00 Room Air 10/03/20 20:00 98.3 68 20 127/67 (87) 96 10/03/20 15:41 97.9 71 20 125/74 (91) 94 10/03/20 13:30 97.7 20 21 108/71 (83) 100 10/03/20 12:30 98.0 74 20 124/71 (88) 97 10/03/20 12:00 97.9 72 20 123/68 (86) 95 10/03/20 11:45 97.9 72 21 121/69 (86) 95 10/03/20 11:40 Room Air 10/03/20 11:30 98.0 69 20 119/70 (86) 96 10/03/20 11:15 97.4 68 20 125/65 98 Room Air 10/03/20 11:00 72 16 133/63 97 Room Air 10/03/20 10:45 69 21 121/91 100 Room Air 10/03/20 10:35 68 14 132/65 100 Simple Mask 6 10/03/20 10:25 75 15 130/66 100 Simple Mask 6 10/03/20 10:20 84 18 140/70 100 Simple Mask 6 10/03/20 10:17 71 18 99 10/03/20 10:16 80 16 100 10/03/20 10:14 97.5 81 20 150/68 100 Simple Mask 6 Intake and Output 10/03/20 10/04/20 19:00 07:00 Intake Total 2520 ml 775 ml Output Total 75 ml Balance 2445 ml 775 ml Intake Oral 840 ml 400 ml IV Total 1680 ml 375 ml Output Estimated Blood Loss 75 ml # Voids 2 2 Laboratory Tests Test 10/04/20 05:20 White Blood Count 11.2 K/UL (4.8-10.8) H Red Blood Count 2.98 M/UL (4.20-5.40) L Hemoglobin 10.1 G/DL (12.0-16.0) L Hematocrit 28.8 % (37.0-47.0) L Mean Corpuscular Volume 97 FL (80-99) Mean Corpuscular Hemoglobin 34.1 PG (27.0-31.0) H Mean Corpuscular Hemoglobin Concent 35.2 G/DL (32.0-36.0) Red Cell Distribution Width 14.9 % (11.6-14.8) H Platelet Count 153 K/UL (150-450) Mean Platelet Volume 7.7 FL (6.5-10.1) Neutrophils (%) (Auto) 75.0 % (45.0-75.0) Lymphocytes (%) (Auto) 15.0 % (20.0-45.0) L Monocytes (%) (Auto) 9.2 % (1.0-10.0) Eosinophils (%) (Auto) 0.3 % (0.0-3.0) Basophils (%) (Auto) 0.5 % (0.0-2.0) Sodium Level 140 MMOL/L (136-145) Potassium Level 3.6 MMOL/L (3.5-5.1) Chloride Level 106 MMOL/L (98-107) Carbon Dioxide Level 27 MMOL/L (21-32) Anion Gap 7 mmol/L (5-15) Blood Urea Nitrogen 23 mg/dL (7-18) H Creatinine 1.3 MG/DL (0.55-1.30) Estimat Glomerular Filtration Rate 41.0 mL/min (>60) Glucose Level 118 MG/DL (74-106) H Calcium Level 8.5 MG/DL (8.5-10.1) Wound: clean, dry, intact Drains: none Neuro Status: normal Vascular Status: normal Additional Comments xray excellent Assessment Post-op Diagnosis POD 1 Procedure Performed right reverse total shoulder arthroplasty Plan Plan: discharge to home - pt has all post op meds and f/u apt Liz Higuera Oct 04, 2020 08:19
[2020-10-04 08:41] VITALS: BP 117/61
[2020-10-04] MEDS: Allopurinol 100mg Tab ORAL SCH (08:41)
[2020-10-04] MEDS: Docusate 100mg cap ORAL SCH ×2 (08:41→12:27)
[2020-10-04] MEDS: oxyCONTIN 10mg tab ORAL SCH (08:42)
[2020-10-04] MEDS: SulfASALAZine 500MG tab ORAL SCH (08:42)
[2020-10-04] MEDS ORDERED: Lisinopril 2.5mg tab ORAL SCH (09:00)
[2020-10-04] MEDS ORDERED: celeBREX 200mg Cap **SURGERY PATIENTS ONLY ORAL SCH (09:00)
--- NOTE | 2020-10-04 11:28 | NUR ---
NURSE NOTES: DISCHARGE ORDER RECEIVED. PATIENT AWARE. RX FILLED. DC INSTRUCTIONS GIVEN AND EXPLAINED. VERBALIZED UNDERSTANDING. WILL F/U WITH SURGEON DISCUSSED. ALL BELONGINGS RETURNED TO PATIENT. TRANSFERRED PATIENT VIA WC TO CAR TO MAIN LOBBY.
--- NOTE | 2020-10-04 19:54 | General Progress Note ---
Subjective Allergies: Uncoded Allergies: CAT GUT (Allergy, Severe, 02/02/19) ITCHING/SWELLINF Subjective pain controlled going home today no chest painor sob Objective Last 24 Hour Vital Signs Date Time Temp Pulse Resp B/P (MAP) Pulse Ox O2 Delivery O2 Flow Rate FiO2 10/04/20 09:12 98.2 10/04/20 09:00 Room Air 10/04/20 08:41 117/61 10/04/20 08:00 98.2 80 20 117/61 (79) 95 10/04/20 07:44 98.2 10/04/20 00:00 98.2 65 16 102/56 (71) 100 10/03/20 21:00 Room Air 10/03/20 20:00 98.3 68 20 127/67 (87) 96 Intake and Output 10/03/20 10/04/20 19:00 07:00 Intake Total 2520 ml 775 ml Output Total 75 ml Balance 2445 ml 775 ml Intake Oral 840 ml 400 ml IV Total 1680 ml 375 ml Output Estimated Blood Loss 75 ml # Voids 2 2 Laboratory Tests 10/04/20 05:20: White Blood Count 11.2H, Red Blood Count 2.98L, Hemoglobin 10.1L, Hematocrit 28.8L, Mean Corpuscular Volume 97, Mean Corpuscular Hemoglobin 34.1H, Mean Corpuscular Hemoglobin Concent 35.2, Red Cell Distribution Width 14.9H, Platelet Count 153, Mean Platelet Volume 7.7, Neutrophils (%) (Auto) 75.0, Lymphocytes (%) (Auto) 15.0L, Monocytes (%) (Auto) 9.2, Eosinophils (%) (Auto) 0.3, Basophils (%) (Auto) 0.5, Sodium Level 140, Potassium Level 3.6, Chloride Level 106, Carbon Dioxide Level 27, Anion Gap 7, Blood Urea Nitrogen 23H, Creatinine 1.3, Estimat Glomerular Filtration Rate 41.0, Glucose Level 118H, Calcium Level 8.5 Height (Feet): 5 Height (Inches): 3.00 Weight (Pounds): 189 General Appearance: WD/WN, no apparent distress Neck: supple Cardiovascular: normal rate Respiratory/Chest: lungs clear Abdomen: soft Edema: no edema noted Arm (L), no edema noted Arm (R), no edema noted Leg (L), no edema noted Leg (R), no edema noted Pedal (L), no edema noted Pedal (R), no edema noted Generalized Assessment/Plan Assessment/Plan: sp shoulder surgery RA Gout HTN pain controlled bp controlled on plaquenil dc plans noted Antonio Doss MD Oct 04, 2020 19:53
--- NOTE | 2020-10-05 09:11 | Discharge Summary ---
Discharge Summary Hospital Course Date of Admission Oct 03, 2020 at 05:07 Date of Discharge Oct 04, 2020 at 11:20 Admitting Diagnosis Right shoulder rotator cuff arthropathy Reason for Hospitalization: Elective surgery HPI Maria Dolores Mcgraw is a 64 year old female who was admitted on Oct 03, 2020 at 05:07 for Complete Rotator Cuff Rupture Of Right Shoulder. Patient was admitted for elective surgery Consultations Dr Doss IM Procedures Right shoulder rotator cuff arthropathy with superior subluxation of the humeral head and loss of rotator cuff. s/p 10/03/[address] Zhang Right reverse total shoulder arthroplasty using Powers system with a small metal-back glenoid baseplate with a central peg, size 36 mm glenosphere with eccentric inferiorly, 2 locking baseplate screws of 20 mm inferiorly and 25 mm superiorly, size 14 mm diameter stem with a +3 mm ultra cross-linked polyethylene reverse liner insert. Hospital Course status post surgery course of recovery uneventful postoperative X ray stable initially IV fluids s/p perioperative antibiotic neurovascular status closely monitored, remained stable incision dressed, clean, dry and intact pain management was addressed; and pain was controlled remained hemodynamically stable ambulated fall precautions maintained; safe for ambulation DVT prophylaxis with SCD provided use of incentive spirometry was encouraged while in the bed tolerated diet , IV fluids discontinued GI prophylaxis provided antiemetics were on board as needed blood pressure was managed with current regimen and remained stable voided freely patient was stable for discharge discharge instructions provided follow up with surgeon in the office as instructed FINAL DIAGNOSES right shoulder rotator cuff arthropathy s/p right reverse total shoulder arthroplasty HTN RA Gout Discharge Medications Continued Medications: Allopurinol* (Allopurinol*) 100 Mg Tablet 100 MG ORAL DAILY for GOUT, TAB Atorvastatin Calcium* (Lipitor*) 10 Mg Tablet 10 MG ORAL BEDTIME, TAB Cyanocobalamin (Vitamin B-12) (Vitamin B12) 5,000 Mcg Tab.rapdis 5000 MCG PO DAILY for SUPPLEMENT, TAB Etanercept (Enbrel) 50 Mg/1 Ml Pen.injctr 50 MG SUBQ ONCE A WEEK for RA, EA Folic Acid* (Folic Acid*) 1 Mg Tablet 1 MG ORAL DAILY for SUPPLEMENT, TAB Hydrochlorothiazide* (Hydrochlorothiazide*) 25 Mg Tablet 25 MG ORAL DAILY, TAB Lisinopril* (Lisinopril*) 2.5 Mg Tablet 5 MG ORAL DAILY for Hypertension, TAB 0 Refills Meloxicam* (Mobic*) 7.5 Mg Tablet 7.5 MG ORAL DAILY for PAIN, #30 TAB 0 Refills Methotrexate Sodium* (Methotrexate*) 2.5 Mg Tablet 2.5 MG PO ONCE A WEEK for RA, TAB [Plaquenil] () 200 MG PO DAILY Prednisone (Prednisone) 5 Mg Tab.ds.pk 5 MG PO DAILY for RHEUMATOID ARTHRITIS, PACK Selenomethionine (Selenium) 200 Mcg Tablet 200 MCG PO DAILY for SUPPLEMENT, TAB Sulfasalazine* (Azulfidine*) 500 Mg Tablet 500 MG ORAL BID for RA, TAB [Vitamin D] () 5000 UNITS PO DAILY Discharge Condition Upon Discharge: stable Discharge Vital Signs Last Vital Signs Date Time Temp Pulse Resp B/P (MAP) Pulse Ox O2 Delivery O2 Flow Rate FiO2 10/04/20 09:12 98.2 10/04/20 09:00 Room Air 10/04/20 08:41 117/61 10/04/20 08:00 80 20 95 10/03/20 10:35 6 Discharge Disposition Patient was discharged home Discharge Instructions Discharge Instructions Special Instructions I have been assigned to complete a D/C Summary on this account. I was not involved in the patient management Alley Umaña NP Oct 05, 2020 09:11
== END 2020-10-04 11:20 | disposition home or self-care (01) | DRG 483 ==
LOC: SDSOVERFLO 05:07 → 3E 11:27
PROC: 0RRJ00Z Replacement of Right Shoulder Joint with Reverse Ball and Socket Synthetic Substitute, Open Approach (ICD-10-PCS; principal; 2020-10-03 07:00)
DX: M75.121 Complete rotator cuff tear or rupture of right shoulder, not specified as traumatic (principal); I10 Essential (primary) hypertension; I25.10 Atherosclerotic heart disease of native coronary artery without angina pectoris; M06.9 Rheumatoid arthritis, unspecified; M10.9 Gout, unspecified
CPT/HCPCS: 36415; 80048; 85025; 86850; 86900; 86901; 87081; 94003; 94150; J2405; J2795; U0002